=== PATIENT | female | born 1965 | race Caucasian/White ===

== ENCOUNTER → 2021-10-08 | Outpatient (CLI) | payer OTHER ==
[~2021-10-08] MED LIST: Imitrex25 MG PO; Medi-Meclizine25 MG PO; PROM25 PO; [UNRECOGNIZED DRUG - OTHER]
[2021-10-11 15:07] LABS: HPV 16 Negative (Negative); HPV 18 Negative (Negative); HPV OTHER HR TYPES Negative (Negative)
== END | disposition home or self-care (01) ==
LOC: LAB 11:35 → LAB SHORT 11:35
PROVIDERS: Family Medicine
DX: Z12.4 Encounter for screening for malignant neoplasm of cervix (principal)
CPT/HCPCS: 87624; G0123

== ENCOUNTER 2023-05-09 07:26 | Day surgery (SDC) | payer OTHER ==
[~2023-05-09] VITALS: Ht 154.9 cm; Wt 77.1 kg
[2023-05-09] VITALS (17 sets, daily range): BP systolic 87–116; BP diastolic 53–74
[~2023-05-09 07:26] MED LIST changes: +Ativan1 MG PO; +CONEST1.25 PO; +EYLEA2 MG/0.02 IO; +FISH OIL 1,2001 EAC7 PO; +MAGNESIUM OXID500 MG PO; +MULTI-VITAMIN1 EAC2 PO; +ONDA4 PO; +Prozac20 MG PO; +TRAZ100 PO; +VITAMIN E90 M1 PO; +Vitamin D1000 UNI1 PO
--- NOTE | 2023-05-09 08:12 | NUR ---
History, Chart, Medications and Allergies reviewed before start of procedure. Patient up to Ambulate independently. Gait steady. Pre-Op teaching done. Pt verbalizes understanding. Patient confirms NPO status and agrees with scheduled surgery. Patient states colon prep results clear. Lungs clear T/O to Auscultation. Patient States Post-Procedure ride home has been arranged.
--- NOTE | 2023-05-09 08:54 | NUR ---
05/09/23 0854 Lola Justice HISTORY, CHART, MEDICATIONS AND ALLERGIES REVIEWED BEFORE START OF PROCEDURE. PATIENT CONFIRMS NPO STATUS AND AGREES WITH SCHEDULED PROCEDURE. 3-LEAD EKG REVIEWED WITH PHYSICIAN PRIOR TO START OF PROCEDURE. MONITOR INTACT WITH CONTINUOUS PULSE OXIMETRY,CAPNOGRAPHY, 3-LEAD EKG, INTERMITTENT BP. SUPPLEMENTAL O2 TO BE TITRATED THROUGHOUT PROCEDURE TO MAINTAIN O2 SATURATION ABOVE 90%. PATIENT DETERMINED TO BE ASA APPROPRIATE FOR PROPOFOL SEDATION PRIOR TO START OF PROCEDURE BY DR. BROOKS. MALLAMPATI CLASS 1 AIRWAY: COMPLETE VISULATIZATION OF THE SOFT PALATE.
--- NOTE | 2023-05-09 09:39 | NUR ---
PO FLUIDS GIVEN. PT FEELING WEL. PT AT BEDSIDE AND WILL BE RIDE HOME. Discharge instructions reviewed with patient. Patient verbalizes understanding. Copy given to patient to take home.
--- NOTE | 2023-05-09 09:58 | NUR ---
Patient up to Ambulate independently. Gait steady.
--- NOTE | 2023-05-09 10:01 | NUR ---
Discharged via wheelchair to private car for ride home.
== END 2023-05-09 10:02 | disposition home or self-care (01) ==
LOC: ORSCMMR 07:26 → ORD 08:30 → ORSCMMR 10:02
PROVIDERS: Internal Medicine Gastroenterology
PROC: 0DB48ZX Excision of Esophagogastric Junction, Via Natural or Artificial Opening Endoscopic, Diagnostic (ICD-10-PCS; principal; 2023-05-09 08:30)
PROC: 0DJD8ZZ Inspection of Lower Intestinal Tract, Via Natural or Artificial Opening Endoscopic (ICD-10-PCS; principal; 2023-05-09 08:30)
PROC: 0DB98ZX Excision of Duodenum, Via Natural or Artificial Opening Endoscopic, Diagnostic (ICD-10-PCS; principal; 2023-05-09 08:30)
DX: R11.2 Nausea with vomiting, unspecified (principal); R19.4 Change in bowel habit; K64.8 Other hemorrhoids; K46.9 Unspecified abdominal hernia without obstruction or gangrene; K44.9 Diaphragmatic hernia without obstruction or gangrene; F41.9 Anxiety disorder, unspecified; H35.30 Unspecified macular degeneration; E66.9 Obesity, unspecified; Z68.32 Body mass index [BMI] 32.0-32.9, adult; Z79.899 Other long term (current) drug therapy
CPT/HCPCS: 88305; 88312; A9270; J2250; J2704; J7120